=== PATIENT | female | born 1990 | race Caucasian/White ===

== ENCOUNTER 2016-12-15 09:03 | Inpatient (IN) | payer OTHER ==
[2016-12-15] MEDS ORDERED: NARCAN 0.4 MG/1 ML IV PRN (09:57)
[2016-12-15] MEDS ORDERED: POLYCILLIN/NS 2 GM/100 ML 2 GM/100 ML BAG IV ONE (10:00)
[2016-12-15] MEDS ORDERED: PITOCin/NS 20 UNIT/1000ML DRIP 20 UNIT/1,000 ML BAG IV SCH (10:00)
[2016-12-15] MEDS ORDERED: PITOCin/NS 30 UNIT/500ML 30 UNIT/500 ML BAG IV SCH ×4 (10:00→13:00)
[2016-12-15 10:33] LABS: Hematocrit 30.2 % (30.3-42.9); Hemoglobin 9.7 gm/dl (10.1-14.3); Mean Corpuscular HGB Conc 32 % (30-34); Mean Corpuscular Hemoglobin 24 pg (28-32); Mean Corpuscular Volume 75 fl (79-97); Platelet Count 221 K/mm3 (140-440); Red Blood Count 4.03 M/mm3 (3.65-5.03); Red Cell Distribution Width 15.5 % (13.2-15.2); White Blood Count 9.4 K/mm3 (4.5-11.0)
[2016-12-15] MEDS ORDERED: MINERAL OIL PO PRN (11:00)
[2016-12-15] MEDS ORDERED: BRETHINE SUB-Q PRN (11:00)
[2016-12-15] MEDS ORDERED: XYLOCAINE 2% INFILTRATI ONE (11:00)
[2016-12-15] MEDS ORDERED: ZOFRAN IV PRN (11:00)
[2016-12-15] MEDS ORDERED: BRETHINE IVP PRN (11:09)
[2016-12-15] MEDS ORDERED: ePHEDrine SULFATE IV PRN (11:30)
[2016-12-15] MEDS: LACTATED RINGERS 1,000 ML IV SCH ×2 (11:30→19:49)
[2016-12-15] MEDS ORDERED: STADOL IV PRN (11:30)
[2016-12-15] MEDS ORDERED: SUBLIMAZE IV PRN (11:30)
--- NOTE | 2016-12-15 12:21 | History and Physical Report ---
History of Present Illness Date of examination: 12/15/16 Date of admission: 12/15/16 10:44 Chief complaint: SROM and uterine contractions Past History Past Medical History: diabetes (with past pregnancies) Past Surgical History: no surgical history Social history: no significant social history - Obstetrical History Expected Date of Delivery: 01/01/17 Actual Gestation: 37 Week(s) 4 Day(s) : 5 Number of Living Children: 3 Medications and Allergies Allergies Allergy/AdvReac Type Severity Reaction Status Date / Time No Known Allergies Allergy Verified 12/15/16 09:35 Active Meds: Active Medications Butorphanol Tartrate (Stadol) 2 mg IV Q2H PRN PRN Reason: Pain , Severe (7-10) Fentanyl (Sublimaze) 100 mcg IV Q2H PRN PRN Reason: Labor Pain Ampicillin Sodium (Polycillin/Ns 1 Gm/50 Ml) 1 gm in 50 mls @ 0 mls/hr IV Q4HR KERRY PRN Reason: Protocol Lactated Ringer's (Lactated Ringers) 1,000 mls @ 125 mls/hr IV DIRECT KERRY Last Admin: 12/15/16 11:30 Dose: 125 mls/hr Oxytocin/Sodium Chloride (Pitocin/Ns 20 Unit/1000ml Drip) 20 unit in 1,000 mls @ 125 mls/hr IV DIRECT KERRY Oxytocin/Sodium Chloride (Pitocin/Ns 30 Unit/500ml) 30 unit in 500 mls @ 0 mls/ hr IV TITR KERRY PRN Reason: Protocol Oxytocin/Sodium Chloride (Pitocin/Ns 30 Unit/500ml) 30 unit in 500 mls @ 1 mls/ hr IV TITR KERRY; 1 MILLIUNITS/MIN PRN Reason: Protocol Mineral Oil (Mineral Oil) 30 ml PO QHS PRN PRN Reason: Constipation Naloxone HCl (Narcan 0.4 Mg/1 Ml) 0.1 mg IV Q2MIN PRN PRN Reason: Res Rate </= 8 or 02 SAT < 92% Ondansetron HCl (Zofran) 4 mg IV Q8H PRN PRN Reason: Nausea And Vomiting Review of Systems All systems: negative Gastrointestinal: abdominal pain Genitourinary: leakage of fluid - Vital Signs Vital signs: Vital Signs Pulse BP Pulse Ox 84 114/73 98 12/15/16 09:33 12/15/16 09:33 12/15/16 09:33 Temp Pulse Resp BP Pulse Ox 97.8 F 85 18 108/73 97 12/15/16 11:57 12/15/16 12:16 12/15/16 11:57 12/15/16 10:34 12/15/16 12:16 - Physical Exam Breasts: Positive: deferred Cardiovascular: Regular rate, Normal S1, Normal S2 Abdomen: Positive: normal appearance, soft, normal bowel sounds. Negative: distention, tenderness Vulva: both: normal Vagina: Positive: normal moisture. Negative: discharge Cervix: Negative: lesion, discharge Uterus: Positive: normal size, normal contour Adnexa: both: normal Anus/Rectum: Positive: normal perianal skin, heme negative. Negative: rectal mass, hemorrhoids Extremities: Deep Tendon Reflex Grade: Normal +2 - Obstetrical FHR: category 1 Uterine Contraction Monitor Mode: External Cervical Dilatation: 3 Uterine Contraction Pattern: Irregular Uterine Tone Measurement Phase: Resting Uterine Contraction Intensity: Mild Results Result Diagrams: 12/15/16 10:00 Abnormal lab results 12/15/16 Range/Units 10:00 Hgb 9.7 L (10.1-14.3) gm/dl Hct 30.2 L (30.3-42.9) % MCV 75 L (79-97) fl MCH 24 L (28-32) pg RDW 15.5 H (13.2-15.2) % All other labs normal. Assessment and Plan iup at 37 weeks, srom, admit, pitocin augmentation.
--- NOTE | 2016-12-15 14:51 | Event Note ---
Date: 12/15/16 pt examined and noted to be 50/3 -3 vetex. iupc placed. efw 8 lbs
[2016-12-15] MEDS: POLYCILLIN/NS 1 GM/50 ML 1 GM/50 ML BAG IV SCH ×2 (16:20→20:22)
--- NOTE | 2016-12-15 18:12 | Event Note ---
Date: 12/15/16 pt examined and noted to be 70/4 -3, vertex. currently on pitocin. anticipating . pt declined pain medicine at this time.
--- NOTE | 2016-12-16 00:51 | Procedure Note ---
OB Delivery Note - Delivery Date of Delivery: 12/16/16 Surgeon: MARIA FERNANDA JAVIER Estimated blood loss: 200cc - Vaginal Delivery presentation: vertex Delivery position: OA Intrapartum events: none Delivery induction: none Delivery augmentation: pitocin Delivery monitor: external FHT, internal uterine Route of delivery: Indicators for instrumentation: nonreassuring FHR tracing Delivery placenta: spontaneous Delivery cord: 3 umbilical vessels Episiotomy: none Delivery laceration: 1st degree (lateral vaginal wallx2 not bleeding and not repaired) Anesthesia: intravenous - Infant A at 1 minute: 8 at 5 minutes: 9 Gender: Female (wt 7-14. infant and mother tolerated the procedure well. precipitious delivery.)
[2016-12-16] MEDS ORDERED: ZOFRAN IV PRN (04:34)
[2016-12-16] MEDS ORDERED: PHENERGAN PR PRN (04:34)
[2016-12-16] MEDS ORDERED: BENADRYL PO PRN (04:34)
[2016-12-16] MEDS ORDERED: PERCOCET 5/325 PO PRN (04:34)
[2016-12-16] MEDS ORDERED: DERMOPLAST TP PRN (04:34)
[2016-12-16] MEDS ORDERED: PHENERGAN PO PRN (04:34)
[2016-12-16] MEDS ORDERED: DULCOLAX PR PRN (04:34)
[2016-12-16] MEDS ORDERED: LANSINOH TP PRN (04:34)
[2016-12-16] MEDS ORDERED: TUCKS PAD TP PRN (04:34)
[2016-12-16] MEDS ORDERED: PITOCin/NS 20 UNIT/1000ML DRIP 20 UNIT/1,000 ML BAG IV SCH (04:34)
[2016-12-16] MEDS ORDERED: TYLENOL PO PRN (04:34)
[2016-12-16] MEDS ORDERED: MILK OF MAGNESIA PO PRN (04:34)
[2016-12-16] MEDS ORDERED: SODIUM CHLORIDE FLUSH SYRINGE 10 ML IV PRN (04:34)
[2016-12-16] MEDS: FEOSOL PO SCH ×2 (09:43→21:47)
[2016-12-16 12:44] LABS: Hematocrit 28.9 % (30.3-42.9); Hemoglobin 9.3 gm/dl (10.1-14.3)
[2016-12-16] MEDS: MOTRIN PO SCH (17:30)
[2016-12-17] MEDS: MOTRIN PO SCH ×2 (05:20)
--- NOTE | 2016-12-17 07:46 | Progress Note ---
Assessment and Plan ppd 1 s/p , + gbs- treated Plan D/c home this pm if baby discharged Subjective - Subjective Date of service: 12/17/16 Principal diagnosis: day 1 s/p Interval history: routine pp care Patient reports: appetite normal, voiding normally Pierce: doing well Objective - Vital Signs Latest vital signs: Vital Signs Temp Pulse Resp BP 12/17/16 00:00 98.6 F 76 18 126/68 12/16/16 17:31 98.4 F 85 18 117/76 12/16/16 11:36 98.1 F 70 18 110/64 12/16/16 08:48 98.4 F 76 18 108/70 Intake and Output 12/16/16 12/17/16 12/17/16 22:59 06:59 14:59 Intake Total 480 240 Balance 480 240 Intake: Oral 480 240 Other: Total, Intake Amount 120 240 # Voids Void 1 1 - Exam Breasts: Present: deferred Cardiovascular: Present: Regular rate, Normal S1, Normal S2 Lungs: Present: Clear to auscultation Abdomen: Present: normal appearance, soft Vulva: both: normal Extremities: Present: normal Deep Tendon Reflex Grade: Normal +2 Incision: Present: normal, dry, intact - Labs Labs: Abnormal lab results 12/16/16 Range/Units 12:30 Hgb 9.3 L (10.1-14.3) gm/dl Hct 28.9 L (30.3-42.9) %
--- NOTE | 2016-12-17 07:49 | Discharge Summary ---
Providers - Providers Date of Admission: 12/15/16 10:44 Date of discharge: 12/17/16 Attending physician: MARIA FERNANDA JAVIER Primary care physician: MARIA FERNANDA JAVIER Hospitalization Reason for admission: active labor Delivery: Procedure details: s/p Episiotomy: none Laceration: 1st degree Incision: normal Other procedures: none complications: none Discharge diagnosis: IUP at term delivered baby: female Hospital course: routine pp course. Plan - D/c home this pm if stable. f/u in 6 weeks Condition at discharge: Good Disposition: DISCHARGED TO HOME OR SELFCARE - Discharge Diagnoses (1) (normal spontaneous vaginal delivery) Status: Acute (2) Anemia Status: Acute Qualifiers: Anemia type: A Iron deficiency anemia type: I Vitamin B12 deficiency anemia type: V Folate deficiency anemia type: F Bone marrow failure anemia type: B Hemolytic anemia type: H Other causes of anemia: O Comment: pt anemic on admission, lower after delivery Plan - Discharge Medications Prescriptions: Ferrous Sulfate [Feosol 325 MG tab] 325 mg PO BID #30 tablet Ibuprofen [Motrin 800 MG tab] 800 mg PO Q8HR PRN #30 tablet PRN Reason: Pain oxyCODONE /ACETAMINOPHEN [Percocet 5/325] 1 tab PO Q6HR PRN #30 tablet PRN Reason: Pain - Provider Discharge Summary Activity: routine, no sex for 6 weeks, no heavy lifting 4 weeks, no strenuous exercise Diet: routine Instructions: routine Additional instructions: [] Smoking cessation referral if applicable(refer to patient education folder for contact #) [] Refer to [facility] Book[facility] Call your doctor immediately for: * Fever > 100.5 * Heavy vaginal bleeding ( >1 pad per hour) * Severe persistent headache * Shortness of breath * Reddened, hot, painful area to leg or breast * Drainage or odor from incision. * Keep incision clean and dry at all times and follow doctor's instructions regarding bathing/showering - Follow up plan Follow up: MARIA FERNANDA JAVIER MD [Primary Care Provider] - 7 Days
[2016-12-17] MEDS: FEOSOL PO SCH (10:45)
[2016-12-17 17:25] VITALS: BP 113/79
== END 2016-12-17 16:00 | disposition home or self-care (01) | DRG 774 ==
LOC: TRG 09:03 → LD 10:44 → OB 12-16 04:33
PROVIDERS: ADMIT Specialist; ATTEND Specialist
PROC: 10E0XZZ Delivery of Products of Conception, External Approach (ICD-10-PCS; principal; 2016-12-16)
PROC: 3E0S3CZ (ICD-10-PCS; 2016-12-16)
PROC: 00HU33Z Insertion of Infusion Device into Spinal Canal, Percutaneous Approach (ICD-10-PCS; 2016-12-16)
DX: O76 Abnormality in fetal heart rate and rhythm complicating labor and delivery (principal); O24.913 Unspecified diabetes mellitus in pregnancy, third trimester; O99.02 Anemia complicating childbirth; O70.0 First degree perineal laceration during delivery; Z3A.37 37 weeks gestation of pregnancy; Z37.0 Single live birth
CPT/HCPCS: 36415; 85014; 85018; 85027; 86850; 86900; 86901; 88307; 99211; G0463; J0290; J2590; J3010; J7120